=== PATIENT | female | born 1985 | race Caucasian/White ===

== ENCOUNTER 2020-10-18 15:43 | Emergency (ER) | payer SELFPAY ==
[~2020-10-18] VITALS: Ht 167.6 cm; Wt 70.0 kg
[2020-10-18 16:30] LABS: BASOPHILS % 0.4 % (0.0-2.0); EOSINOPHILS % 0.2 % (0.0-5.0); HEMATOCRIT. 42.5 % (36.0-48.0); HEMOGLOBIN. 14.4 g/dL (12.0-16.0); LYMPHOCYTES % 31.4 % (20.0-50.0); MEAN CORPUSCULAR HEMOGLOBIN 30.7 pg (28.0-32.0); MEAN CORPUSCULAR VOLUME 90.8 fL (81.0-99.0); MEAN PLATELET VOLUME 9.2 fl (7.4-10.4); MONOCYTES % 5.3 % (2.0-8.0); NEUTROPHILS % 62.7 % (40.0-76.0); PLATELET 295 x1000/uL (130-400); RED BLOOD CELL COUNT 4.68 mill/uL (4.2-5.4); RED CELL DISTRIBUTION WIDTH 13.5 % (11.6-14.6)
[2020-10-18 16:31] LABS: CHLORIDE 110 mEq/L (98-107)
[2020-10-18 16:42] LABS: HCG SCREEN NEGATIVE
[2020-10-18] MEDS ORDERED: KETOROLAC 15MG/ML VIAL IV ONE (16:45)
[2020-10-18] MEDS ORDERED: ACETAMINOPHEN 325MG TABLET PO ONE (16:45)
[2020-10-18 18:48] VITALS: BP 111/78
== END 2020-10-18 18:48 | disposition home or self-care (01) ==
LOC: ER 15:43
DX: R55 Syncope and collapse (principal); R07.89 Other chest pain; E78.00 Pure hypercholesterolemia, unspecified
CPT/HCPCS: 36415; 71045; 80053; 83880; 84484; 84703; 85025; 93005; 96374; 99285; J1885